=== PATIENT | female | born 1995 | race African-American/Black ===

== ENCOUNTER 2021-05-25 09:21 | Inpatient (IN) ==
[2021-05-25] MEDS ORDERED: ceFAZolin 3,000 MG in SYRINGE 1 EACH IV ONE (09:36)
[2021-05-25] MEDS ORDERED: CITRIC ACID/SODIUM CITRATE 30 ML UDCUP PO ONE (09:36)
[2021-05-25] MEDS ORDERED: OXYTOCIN/LR 30 UNIT/1,000 ML BAG IV ONE (09:38)
[2021-05-25] MEDS ORDERED: OXYTOCIN 10 UNIT/ML VIAL IM ONE (09:38)
[2021-05-25 10:02] LABS: Basophils % 0.3 % (0.0-0.8); Eosinophils # 0.1 10*3/uL (0.0-0.87); Eosinophils % 1.2 % (0.00-10.9); Hematocrit 34.2 VOL% (35.7-47.0); Hemoglobin 11.3 GM/DL (12.0-16.0); Immature Granulocytes % 0.3 %; Immature Granulocytes Absolute 0.03 #; Lymphocytes # 2.2 10*3/uL (1.4-4.0); Lymphocytes % 24.5 % (21.3-54.2); Mean Corpuscular Volume 89.8 FL (87-102); Mean Platelet Volume 10.9 FL (9.6-12.0); Monocytes % 6.4 % (1.7-12.7); Neutrophils % 67.3 % (38.7-73.9); Platelet Count 259 T/CUMM (130-400); Red Blood Count 3.81 MC/CUMM (3.8-5.5); Red Cell Distribution Width 13.2 % (9.3-17.3); White Blood Count 9.1 T/CUMM (4-12)
[2021-05-25] MEDS: LACTATED RINGERS 1,000 ML IV PRN ×2 (10:05→10:44)
[2021-05-25] MEDS ORDERED: FAMOTIDINE 20 MG/2 ML VIAL IV ONE ×2 (10:16)
[2021-05-25 10:23] LABS: Alanine Aminotransferase 10 U/L (13-56); Albumin 2.6 G/DL (3.4-5.0); Alkaline Phosphatase 220 U/L (45-117); Aspartate Amino Transferase 14 U/L (0-37); Bilirubin,Total < 0.39 MG/DL (0.20-1.00); Blood Urea Nitrogen 6 MG/DL (7-18); Calcium 8.7 MG/DL (8.5-10.1); Carbon Dioxide 22 MMOL/L (21-32); Estimated Glom Filtration Rate 155 ML/MIN; Glucose 90 MG/DL (74-106); Osmolality,Calculated 272.7 MOS/KG (273-304); Sodium 138 MMOL/L (136-145); Total Protein 7.4 G/DL (6.4-8.2)
[2021-05-25] MEDS ORDERED: miSOPROStoL 200 MCG TABLET ONE (10:30)
[2021-05-25] MEDS ORDERED: CARBOPROST TROMETHAMINE 250 MCG/ML AMP IM ONE (10:31)
[2021-05-25] MEDS ORDERED: METHYLERGONOVINE 0.2 MG/1 ML AMP ONE (10:31)
[2021-05-25] MEDS ORDERED: BUPIVACAINE SPINAL 0.75% 2 ML AMP SPINAL ONE (10:44)
[2021-05-25] MEDS ORDERED: ONDANSETRON 4 MG/2 ML VIAL ONE (10:47)
[2021-05-25] MEDS ORDERED: METOCLOPRAMIDE 10 MG/2 ML VIAL ONE (10:47)
[2021-05-25] MEDS ORDERED: LACTATED RINGERS 1,000 ML IV ONE (11:22)
[2021-05-25] MEDS ORDERED: PHENYLEPHRINE 1 MG/10 ML SYRINGE IV ONE (11:24)
[2021-05-25] MEDS ORDERED: PROMETHAZINE 25 MG/1 ML VIAL ONE (11:37)
[2021-05-25] MEDS ORDERED: KETOROLAC 30 MG/1 ML VIAL ONE (11:46)
[2021-05-25 11:50] LABS: Bilirubin,Urine Negative (Negative); Blood, Urine Negative (Negative); Glucose,Urine (UA) Negative (Negative); Ketones,Urine Negative (Negative); Nitrite,Urine Negative (Negative); Protein,Urine Negative; Squamous Epithelial Cell,Urine Occasional /HPF (0-10); Urine Appearance CLEAR (Clear); Urine Color Straw (Yellow); Urine Specific Gravity 1.014 (1.001-1.035); Urine Urobilinogen < 2.0 EU/DL (0.2-1.0)
[2021-05-25 12:02] LABS: Cord Arterial Blood HCO3 20.2 MMOL/L
[2021-05-25 12:05] LABS: Cord Venous Blood HCO3 21.9 MMOL/L; Cord Venous Blood PO2 19.2
[2021-05-25 12:06] LABS: Cord Arterial Blood HCO3 21.7 MMOL/L
[2021-05-25 12:08] LABS: Cord Venous Blood PCO2 55.1 MMHG; Cord Venous Blood PO2 20.2
[2021-05-25] MEDS ORDERED: ONDANSETRON 4 MG/2 ML VIAL IV PRN (13:05)
[2021-05-25] MEDS ORDERED: SIMETHICONE CHEW 80 MG TABLET PO PRN (13:05)
[2021-05-25] MEDS ORDERED: RHO(D) IMMUNE GLOBULIN 300 MCG SYRINGE IM ONE (13:05)
[2021-05-25] MEDS ORDERED: OXYTOCIN/LR 20 UNIT/1,000 ML BAG IV ONE (13:05)
[2021-05-25] MEDS ORDERED: ACETAMINOPHEN 325 MG TABLET PO PRN (13:05)
[2021-05-25] MEDS ORDERED: IBUPROFEN 800 MG TABLET PO PRN (13:05)
[2021-05-25] MEDS ORDERED: LACTATED RINGERS 1,000 ML IV SCH (13:30)
[2021-05-25 13:53] LABS: Rubella Antibody IgG Result Non-Reactive (NonReactive)
[2021-05-25] MEDS: ACETAMINOPHEN 500 MG TABLET PO SCH ×2 (15:40→22:00)
[2021-05-25] MEDS: diphenhydrAMINE CAP 25 MG CAPSULE PO PRN ×2 (16:32→23:34)
[2021-05-25] MEDS: KETOROLAC 30 MG/1 ML VIAL IV SCH ×2 (18:17→23:35)
[2021-05-25 18:18] LABS: Basophils % 0.3 % (0.0-0.8); Eosinophils # 0.1 10*3/uL (0.0-0.87); Eosinophils % 0.6 % (0.00-10.9); Hemoglobin 10.3 GM/DL (12.0-16.0); Immature Granulocytes % 0.5 %; Immature Granulocytes Absolute 0.07 #; Lymphocytes # 2.7 10*3/uL (1.4-4.0); Mean Corpuscular HGB Conc 33.2 GM/DL (32-36); Mean Corpuscular Volume 90.4 FL (87-102); Mean Platelet Volume 10.8 FL (9.6-12.0); Neutrophils % 72.6 % (38.7-73.9); Platelet Count 215 T/CUMM (130-400); Red Blood Count 3.43 MC/CUMM (3.8-5.5); Red Cell Distribution Width 13.3 % (9.3-17.3); White Blood Count 13.3 T/CUMM (4-12)
[2021-05-25] MEDS: DOCUSATE SODIUM 100 MG CAPSULE PO SCH (21:59)
[2021-05-26] MEDS: ACETAMINOPHEN 500 MG TABLET PO SCH ×2 (02:22→08:33)
[2021-05-26] MEDS: KETOROLAC 30 MG/1 ML VIAL IV SCH (05:30)
[2021-05-26 05:48] LABS: Basophils % 0.1 % (0.0-0.8); Eosinophils # 0.1 10*3/uL (0.0-0.87); Hemoglobin 8.8 GM/DL (12.0-16.0); Immature Granulocytes % 0.3 %; Immature Granulocytes Absolute 0.03 #; Lymphocytes # 2.4 10*3/uL (1.4-4.0); Lymphocytes % 27.9 % (21.3-54.2); Mean Corpuscular HGB Conc 32.6 GM/DL (32-36); Mean Corpuscular Volume 91.8 FL (87-102); Mean Platelet Volume 11.1 FL (9.6-12.0); Neutrophils % 62.7 % (38.7-73.9); Platelet Count 184 T/CUMM (130-400); Red Blood Count 2.94 MC/CUMM (3.8-5.5); Red Cell Distribution Width 13.4 % (9.3-17.3); White Blood Count 8.7 T/CUMM (4-12)
[2021-05-26 06:14] LABS: Band Neutrophils 4 % (0-10); Eosinophils 1 % (0-10); Lymphocytes 27 % (20-55); Platelet Estimate Normal; Segmented Neutrophils 62 % (50-85); Total Cells Counted 100
[2021-05-26 06:15] LABS: Anisocytosis 2+; Macrocytosis Slight
[2021-05-26] MEDS ORDERED: METOCLOPRAMIDE 10 MG TABLET PO SCH (08:00)
[2021-05-26] MEDS: DOCUSATE SODIUM 100 MG CAPSULE PO SCH ×2 (08:33→21:15)
[2021-05-26] MEDS: MAGNESIUM HYDROXIDE SUSP 30 ML UDCUP PO PRN ×2 (08:35→21:17)
[2021-05-26] MEDS: MULTIVITAMIN (PRENATAL) TABLET PO SCH (08:35)
[2021-05-26] MEDS: FERROUS SULFATE 325 MG TABLET PO SCH (21:14)
[2021-05-27] MEDS: FERROUS SULFATE 325 MG TABLET PO SCH (08:57)
[2021-05-27] MEDS: MULTIVITAMIN (PRENATAL) TABLET PO SCH (08:57)
[2021-05-27] MEDS: DOCUSATE SODIUM 100 MG CAPSULE PO SCH (09:14)
[2021-05-27 11:52] VITALS: BP 147/81
== END 2021-05-27 12:45 | disposition home or self-care (01) | DRG 539 ==
LOC: N.LDOUT 09:21 → N.LD 09:25 → N.OB 16:17
PROVIDERS: ADMIT Obstetrics & Gynecology; ATTEND Obstetrics & Gynecology